=== PATIENT | female | born 1970 | race Caucasian/White ===

== ENCOUNTER 2016-09-24 19:00 | Emergency (ER) | payer MEDICARE, MEDICAID ==
[2016-09-24 19:30] VITALS: BP 112/84
[2016-09-24] MEDS ORDERED: diphenhydrAMINE 50 MG/ML SDV IVPUSH ONE (19:45)
[2016-09-24] MEDS ORDERED: Ondansetron 4 MG/2 ML SDV IV ONE (19:46)
[2016-09-24] MEDS ORDERED: Ketorolac 30 MG/ML SDV IVPUSH ONE (19:47)
[2016-09-24] MEDS ORDERED: HYDROmorphone 1 MG/ML Syringe IVPUSH ONE (21:02)
--- NOTE | 2016-09-24 21:37 | EDM.PDOC ---
ED HPI HEADACHE COMPLAINT - General Chief Complaint: Headache Stated Complaint: MIGRAINE/RETAINING FLUID Time Seen by Provider: 09/24/16 19:40 Source of Information: Reports: Patient History Limitations: Reports: No limitations - History of Present Illness INITIAL COMMENTS - FREE TEXT/NARRATIVE: C/o migraine pain since Thursday. Has Hx, Taken usual home medications without relief, nausea no vomiting. Notes slight increase than usual swelling and wonders if contributing to headache. Receiving Botox injections on regular basis. Location: Reports: occipital (right ), temporal, right Quality: Reports: pounding Severity: Reports: moderate, similar to past headaches Associated Symptoms: Reports: photophobia - Related Data Allergies/ADRs: Allergies Allergy/AdvReac Type Severity Reaction Status Date / Time Sulfa (Sulfonamide Allergy Intermediate Rash Verified 09/24/16 19:30 Antibiotics) metoclopramide HCl Allergy Swelling Verified 09/24/16 19:30 [From Reglan] quetiapine fumarate Allergy Disorientat Verified 09/24/16 19:30 [From Seroquel] ion Home Meds: Home Meds Budesonide/Formoterol [Symbicort 160-4.5 MCG] 2 puff INH BID 05/24/14 [History] Promethazine [Phenergan] 25 mg PO Q6HR PRN 06/30/14 [History] Carvedilol [Coreg] 6.25 mg PO BID 11/16/14 [History] Lisinopril 20 mg PO DAILY 01/29/15 [History] Potassium Chloride [Klor-Con M20] 40 meq PO DAILY 03/12/15 [History] Fexofenadine [Yolie] 180 mg PO DAILY PRN 03/13/15 [History] Gabapentin [Neurontin] 600 mg PO Q6H PRN 06/03/15 [History] Bumetanide 2 mg PO DAILY 09/12/15 [History] Calcium Carbonate/Vitamin D3 [Calcium 500-Vit D3 400 Tablet] 1 tab PO BID [History] Dexlansoprazole [Dexilant] 60 mg PO DAILY 09/12/15 [History] Methenamine Mandelate 1 gm PO BIDMEALS 09/12/15 [History] Polyethylene Glycol 3350 17 gm PO ASDIRECTED PRN 09/12/15 [History] Rizatriptan Benzoate [Maxalt] 5 mg PO ASDIRECTED PRN 09/12/15 [History] valACYclovir [Valtrex] 500 mg PO BID PRN 09/12/15 [History] Albuterol/Ipratropium [DuoNeb 3.0-0.5 MG/3 ML] 3 ml NEB Q6HRRT PRN 09/22/15 [ History] ClonazePAM [KlonoPIN] 0.5 mg PO ASDIRECTED 09/22/15 [History] Topiramate [Topamax] 100 mg PO BEDTIME 09/23/15 [History] busPIRone [Buspar] 10 mg PO TID 09/23/15 [History] Levalbuterol Tartrate [Xopenex HFA] 2 puff INH Q4H PRN 01/07/16 [History] Ondansetron [Zofran ODT] 4 mg SL Q8H PRN 03/24/16 [History] Escitalopram [Lexapro] 10 mg PO DAILY 06/12/16 [History] Past Medical History HEENT History: Reports: Impaired vision Other HEENT History: wears glasses Cardiovascular History: Reports: Arrhythmia, Blood clots/VTE/DVT, Cardiomyopathy , Heart Failure, Hypertension Respiratory History: Reports: Asthma, COPD, Pneumonia, recurrent Gastrointestinal History: Reports: GERD Genitourinary History: Reports: Renal calculus, UTI, recurrent 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: Endometrial ablation, 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, Musculoskeletal History: Reports: Back pain, chronic, Fracture Other Musculoskeletal History: Neck and back discomfort at present #4 on 0 to 10 scale is going to chiropractor; HX OF R WRIST FRACTURE Neurological History: Reports: Migraines Psychiatric History: Reports: Anxiety, PTSD Endocrine/Metabolic History: Reports: None Hematologic History: Reports: B12 deficiency, Bleeding disorder Other Hematologic History: vit D deficiency, 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 Immunologic History: Reports: None Oncologic (Cancer) History: Reports: None Dermatologic History: Reports: None - Infectious Disease History Infectious Disease History: Reports: None - Past Surgical History HEENT Surgical History: Reports: Naso-sinus surgery, Other (see below) Other HEENT Surgeries/Procedures: sinus 2004 Cardiovascular Surgical History: Reports: AICD Respiratory Surgical History: Reports: None GI Surgical History: Reports: Appendectomy, Cholecystectomy Female Surgical History: Reports: section, Endometrial ablation, Hysterectomy Endocrine Surgical History: Reports: None Neurological Surgical History: Reports: None Musculoskeletal Surgical History: Reports: Carpal tunnel, Other (see below) Other Musculoskeletal Surgeries/Procedures:: R wrist surgery Oncologic Surgical History: Reports: None Dermatological Surgical History: Reports: None Social & Family History - Family History Family Medical History: Unobtainable Cardiac: Reports: Blood clots/VTE/DVT, CAD, Other (see below) Other Cardiac Family History: FACTOR IV Respiratory: Reports: COPD Neurological: Reports: Alzheimers disease Endocrine/Metabolic: Reports: Diabetes, type II Hematologic: Reports: Anemia, B12 deficiency - Tobacco Use Smoking Status *Q: Current Every Day Smoker Years of Tobacco use: 30 Packs/Tins Daily: 10 Used Tobacco, but Quit: Yes Month Tobacco Last Used: 2014 Second Hand Smoke Exposure: No - Caffeine Use Caffeine Use: Reports: Coffee, Soda, Tea - Alcohol Use Days Per Week of Alcohol Use: 0 - Recreational Drug Use Recreational Drug Use: No Drug Use in Last 12 Months: Yes - Living Situation & Occupation Living situation: Reports: with significant other Occupation: employed ED ROS GENERAL - Review of Systems Review Of Systems: See Below Constitutional: Reports: no symptoms HEENT: Reports: Vision change (light sensitive) Respiratory: Reports: No Symptoms Cardiovascular: Reports: No symptoms GI/Abdominal: Reports: Nausea : Reports: no symptoms Musculoskeletal: Reports: no symptoms Skin: Reports: no symptoms Neurological: Reports: Headache Psychiatric: Reports: No symptoms - Physical Exam Exam: See Below Exam Limited By: No limitations General Appearance: alert, moderate distress Eye Exam: bilateral eye: EOMI, PERRL Ears: normal external exam Nose: normal inspection Throat/Mouth: Normal inspection Head Exam: atraumatic, normocephalic Neck: normal inspection, full range of motion Respiratory/Chest: no respiratory distress, lungs clear Cardiovascular: normal peripheral pulses, regular rate, rhythm GI/Abdominal: normal bowel sounds, soft Neuro Exam (Abbreviated): alert, oriented, normal cognition, normal gait, no motor/sensory deficits Extremities: normal inspection Psychiatric: normal affect Skin Exam: Warm, Dry, Intact, Normal color Course - Vital Signs Last Recorded V/S: Last Vital Signs Temp 97.7 F 09/24/16 21:55 Pulse 99 09/24/16 21:55 Resp 18 09/24/16 21:55 BP 112/84 09/24/16 21:55 Pulse Ox 96 05/03/17 21:55 - Orders/Labs/Meds Meds: Medications Discontinued Medications Generic Name Dose Route Start Last Admin Trade Name Myriam HERNANDEZ Reason Stop Dose Admin Diphenhydramine HCl 25 mg 09/24/16 19:45 09/24/16 20:10 Benadryl IVPUSH 09/24/16 19:46 25 mg ONETIME ONE Administration Hydromorphone HCl 1 mg 09/24/16 21:02 09/24/16 21:09 Dilaudid IVPUSH 09/24/16 21:03 1 mg ONETIME ONE Administration Ketorolac Tromethamine 30 mg 09/24/16 19:47 09/24/16 20:10 Toradol IVPUSH 09/24/16 19:48 30 mg ONETIME ONE Administration Ondansetron HCl 4 mg 09/24/16 19:46 09/24/16 20:10 Zofran IV 09/24/16 19:47 4 mg ONETIME ONE Administration Departure - Departure Time of Disposition: 21:35 Disposition: Home, Self-Care 01 Condition: good Clinical Impression: Migraine Forms: ED Department Discharge Additional Instructions: Home rest Resume home medications follow up with voice teacher or primary care in am regarding swelling
== END 2016-09-24 21:55 | disposition home or self-care (01) ==
LOC: DL.ED 19:00
DX: G43.909 Migraine, unspecified, not intractable, without status migrainosus (principal); I11.0 Hypertensive heart disease with heart failure; I50.9 Heart failure, unspecified; J45.909 Unspecified asthma, uncomplicated; J44.9 Chronic obstructive pulmonary disease, unspecified; Z87.01 Personal history of pneumonia (recurrent); F41.9 Anxiety disorder, unspecified; F17.210 Nicotine dependence, cigarettes, uncomplicated; Z90.49 Acquired absence of other specified parts of digestive tract; Z90.710 Acquired absence of both cervix and uterus; Z87.440 Personal history of urinary (tract) infections; Z79.899 Other long term (current) drug therapy; Z88.2 Allergy status to sulfonamides; Z88.8 Allergy status to other drugs, medicaments and biological substances
CPT/HCPCS: 96374; 96375; 99282; J1170; J1200; J1885; J2405; 99284

== ENCOUNTER 2016-09-27 15:21 | Emergency (ER) | payer MEDICARE, MEDICAID ==
[2016-09-27 15:50] VITALS: BP 87/74
[2016-09-27] MEDS ORDERED: Cyclobenzaprine 10 MG Tab PO ONE ×2 (16:40→17:37)
[2016-09-27] MEDS ORDERED: Codeine/Promethazine 10-6.25 MG/5 ML Syrup 5 ML UD Cup ONE (17:37)
[2016-09-27] MEDS ORDERED: Codeine/Promethazine 10-6.25 MG/5 ML Syrup 5 ML UD Cup PO ONE (17:37)
[2016-09-27] MEDS ORDERED: Cyclobenzaprine 10 MG Tab ONE (17:37)
[2016-09-27] MEDS ORDERED: Codeine/Promethazine 10-6.25 MG/5 ML Syrup 5 ML UD Cup PO SCH (18:00)
--- NOTE | 2016-09-29 16:16 | EDM.PDOC ---
Scribed by Georgia Maldonado 09/27/16 0020 for True Ruvalcaba MD ED HISTORY OF PRESENT ILLNESS - General Chief Complaint: Respiratory Problem Stated Complaint: HARD TIME BREATHING [id number] Time Seen by Provider: 09/27/16 16:30 Source of Information: Reports: Patient, RN, RN notes reviewed History Limitations: Reports: No limitations - History of Present Illness INITIAL COMMENTS - FREE TEXT/NARRATIVE: Patient presents with about 2 days duration of violent cough, which woke her up at night with accompanying right-sided and epigastric pain. This was described as sharp worse with movement and with stretching. She did try some over-the- counter cough medication which did not help. Due to her persistent coughing she came to the ER. Severity: severe Location, General: Reports: chest Improves with: Reports: None Associated Symptoms (General): Reports: no other symptoms - Related Data Allergies/ADRs: Allergies Allergy/AdvReac Type Severity Reaction Status Date / Time Sulfa (Sulfonamide Allergy Intermediate Rash Verified 09/24/16 19:30 Antibiotics) metoclopramide HCl Allergy Swelling Verified 09/24/16 19:30 [From Reglan] quetiapine fumarate Allergy Disorientat Verified 09/24/16 19:30 [From Seroquel] ion Home Meds: Home Meds Budesonide/Formoterol [Symbicort 160-4.5 MCG] 2 puff INH BID 05/24/14 [History] Promethazine [Phenergan] 25 mg PO Q6HR PRN 06/30/14 [History] Carvedilol [Coreg] 6.25 mg PO BID 11/16/14 [History] Lisinopril 20 mg PO DAILY 01/29/15 [History] Potassium Chloride [Klor-Con M20] 40 meq PO DAILY 03/12/15 [History] Fexofenadine [Yolie] 180 mg PO DAILY PRN 03/13/15 [History] Gabapentin [Neurontin] 600 mg PO Q6H PRN 06/03/15 [History] Bumetanide 2 mg PO DAILY 09/12/15 [History] Calcium Carbonate/Vitamin D3 [Calcium 500-Vit D3 400 Tablet] 1 tab PO BID [History] Dexlansoprazole [Dexilant] 60 mg PO DAILY 09/12/15 [History] Methenamine Mandelate 1 gm PO BIDMEALS 09/12/15 [History] Polyethylene Glycol 3350 17 gm PO ASDIRECTED PRN 09/12/15 [History] Rizatriptan Benzoate [Maxalt] 5 mg PO ASDIRECTED PRN 09/12/15 [History] valACYclovir [Valtrex] 500 mg PO BID PRN 09/12/15 [History] Albuterol/Ipratropium [DuoNeb 3.0-0.5 MG/3 ML] 3 ml NEB Q6HRRT PRN 09/22/15 [ History] ClonazePAM [KlonoPIN] 0.5 mg PO ASDIRECTED 09/22/15 [History] Topiramate [Topamax] 100 mg PO BEDTIME 09/23/15 [History] busPIRone [Buspar] 10 mg PO TID 09/23/15 [History] Levalbuterol Tartrate [Xopenex HFA] 2 puff INH Q4H PRN 01/07/16 [History] Ondansetron [Zofran ODT] 4 mg SL Q8H PRN 03/24/16 [History] Escitalopram [Lexapro] 10 mg PO DAILY 06/12/16 [History] Past Medical History HEENT History: Reports: Impaired vision Other HEENT History: wears glasses Cardiovascular History: Reports: Arrhythmia, Blood clots/VTE/DVT, Cardiomyopathy , Heart Failure, Hypertension Respiratory History: Reports: Asthma, COPD, Pneumonia, recurrent Gastrointestinal History: Reports: GERD Genitourinary History: Reports: Renal calculus, UTI, recurrent 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: Endometrial ablation, 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, Musculoskeletal History: Reports: Back pain, chronic, Fracture Other Musculoskeletal History: Neck and back discomfort at present #4 on 0 to 10 scale is going to chiropractor; HX OF R WRIST FRACTURE Neurological History: Reports: Migraines Psychiatric History: Reports: Anxiety, PTSD Endocrine/Metabolic History: Reports: None Hematologic History: Reports: B12 deficiency, Bleeding disorder Other Hematologic History: vit D deficiency, 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 Immunologic History: Reports: None Oncologic (Cancer) History: Reports: None Dermatologic History: Reports: None - Infectious Disease History Infectious Disease History: Reports: None - Past Surgical History HEENT Surgical History: Reports: Naso-sinus surgery, Other (see below) Other HEENT Surgeries/Procedures: sinus 2004 Cardiovascular Surgical History: Reports: AICD Respiratory Surgical History: Reports: None GI Surgical History: Reports: Appendectomy, Cholecystectomy Female Surgical History: Reports: section, Endometrial ablation, Hysterectomy Endocrine Surgical History: Reports: None Neurological Surgical History: Reports: None Musculoskeletal Surgical History: Reports: Carpal tunnel, Other (see below) Other Musculoskeletal Surgeries/Procedures:: R wrist surgery Oncologic Surgical History: Reports: None Dermatological Surgical History: Reports: None Social & Family History - Family History Family Medical History: Unobtainable Cardiac: Reports: Blood clots/VTE/DVT, CAD, Other (see below) Other Cardiac Family History: FACTOR IV Respiratory: Reports: COPD Neurological: Reports: Alzheimers disease Endocrine/Metabolic: Reports: Diabetes, type II Hematologic: Reports: Anemia, B12 deficiency - Tobacco Use Smoking Status *Q: Current Every Day Smoker Years of Tobacco use: 10 Packs/Tins Daily: 0.5 Used Tobacco, but Quit: Yes Month Tobacco Last Used: 2014 Second Hand Smoke Exposure: Yes - Caffeine Use Caffeine Use: Reports: Coffee, Soda, Tea - Alcohol Use Days Per Week of Alcohol Use: 0 - Recreational Drug Use Recreational Drug Use: No Drug Use in Last 12 Months: Yes - Living Situation & Occupation Living situation: Reports: with significant other Occupation: employed ED ROS GENERAL - Review of Systems Review Of Systems: ROS reveals no pertinent complaints other than HPI. ED EXAM, GENERAL - Physical Exam Exam: See Below Exam Limited By: No limitations General Appearance: alert, WD/WN, no apparent distress Eye Exam: bilateral eye: normal inspection Ears: normal external exam, normal canal, hearing grossly normal, normal TMs Nose: normal inspection, normal mucosa, no blood Throat/Mouth: Normal inspection, Normal lips, Normal teeth, Normal gums, Normal oropharynx, Normal voice, No airway compromise Head: atraumatic, normocephalic Neck: normal inspection, supple, non-tender, full range of motion Respiratory/Chest: no respiratory distress, lungs clear, normal breath sounds, no accessory muscle use, chest non-tender Cardiovascular: normal peripheral pulses, regular rate, rhythm, no edema, no gallop, no JVD, no murmur, no rub GI/Abdominal: other (tenderness on right upper quadrant costal area and epigastric area to palpation. No rebound or guarding. ) Back Exam: normal inspection, full range of motion, NT Extremities: normal inspection, normal range of motion, non-tender, normal capillary refill, no pedal edema Neurological: alert, oriented, CN II-XII intact, normal cognition, normal gait, normal reflexes, no motor/sensory deficits Psychiatric: normal affect, normal mood Skin Exam: Warm, Dry, Intact, Normal color, No rash Lymphatic: no adenopathy Course - Vital Signs Last Recorded V/S: Last Vital Signs Temp 37.7 C 09/27/16 15:48 Pulse 107 H 09/27/16 15:48 Resp 16 09/27/16 15:48 BP 87/74 L 09/27/16 15:48 Pulse Ox 93 L 09/27/16 15:48 - Orders/Labs/Meds Meds: Medications Discontinued Medications Generic Name Dose Route Start Last Admin Trade Name Thorq PRN Reason Stop Dose Admin Cyclobenzaprine HCl 10 mg 09/27/16 16:40 09/27/16 16:53 Flexeril PO 09/27/16 16:41 10 mg ONETIME ONE Administration Cyclobenzaprine HCl Confirm 09/27/16 17:37 09/27/16 17:44 Flexeril Administered 09/27/16 17:38 Not Given Dose 60 mg .ROUTE .STK-MED ONE Promethazine HCl/Codeine 5 ml 09/27/16 18:00 09/27/16 16:53 Phenergan With Codeine PO 5 ml Q4HR YUAN Administration Promethazine HCl/Codeine Confirm 09/27/16 17:37 09/27/16 17:44 Phenergan With Codeine Administered 09/27/16 17:38 Not Given Dose 20 ml .ROUTE .STK-MED ONE Departure - Departure Time of Disposition: 17:28 Disposition: Home, Self-Care 01 Condition: good Clinical Impression: Pleurodynia Instructions: Pleurodynia Forms: ED Department Discharge Additional Instructions: Flexeril 10mg. Phenergan with codeine. Follow up if persistent. I have read and agree with the documentation that has been completed regarding this visit. By signing this record, I attest that the documentation was completed in my physical presence and is an accurate record of the encounter.
== END 2016-09-27 17:45 | disposition home or self-care (01) ==
LOC: DL.ED 15:21
DX: R07.81 Pleurodynia (principal); I11.0 Hypertensive heart disease with heart failure; I50.9 Heart failure, unspecified; J45.909 Unspecified asthma, uncomplicated; J44.9 Chronic obstructive pulmonary disease, unspecified; K21.9 Gastro-esophageal reflux disease without esophagitis; F41.9 Anxiety disorder, unspecified; F17.210 Nicotine dependence, cigarettes, uncomplicated; Z87.01 Personal history of pneumonia (recurrent); Z87.440 Personal history of urinary (tract) infections; Z79.899 Other long term (current) drug therapy; Z90.49 Acquired absence of other specified parts of digestive tract; Z90.710 Acquired absence of both cervix and uterus; Z88.2 Allergy status to sulfonamides; Z88.8 Allergy status to other drugs, medicaments and biological substances
CPT/HCPCS: 99283; A9270

== ENCOUNTER 2016-12-04 14:59 | Emergency (ER) | payer MEDICARE, MEDICAID ==
[2016-12-04 15:26] VITALS: BP 124/74
[2016-12-04] MEDS ORDERED: Ketorolac 30 MG/ML SDV IVPUSH ONE (17:17)
[2016-12-04] MEDS ORDERED: diphenhydrAMINE 50 MG/ML SDV IVPUSH ONE (17:17)
[2016-12-04] MEDS ORDERED: Dexamethasone 4 MG/ML SDV IVPUSH ONE (17:17)
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
[2016-12-04] MEDS ORDERED: Ondansetron 4 MG/2 ML SDV IV ONE (17:21)
[2016-12-04] MEDS ORDERED: HYDROmorphone 1 MG/ML Syringe IVPUSH ONE (17:48)
== END 2016-12-04 18:15 | disposition home or self-care (01) ==
LOC: DL.ED 14:59
DX: G43.909 Migraine, unspecified, not intractable, without status migrainosus (principal); I11.0 Hypertensive heart disease with heart failure; I50.9 Heart failure, unspecified; F17.210 Nicotine dependence, cigarettes, uncomplicated; F41.9 Anxiety disorder, unspecified; J45.909 Unspecified asthma, uncomplicated; K21.9 Gastro-esophageal reflux disease without esophagitis; I42.9 Cardiomyopathy, unspecified; J44.9 Chronic obstructive pulmonary disease, unspecified; Z90.49 Acquired absence of other specified parts of digestive tract; Z98.890 Other specified postprocedural states; Z90.710 Acquired absence of both cervix and uterus; Z79.899 Other long term (current) drug therapy; Z88.2 Allergy status to sulfonamides; Z88.8 Allergy status to other drugs, medicaments and biological substances; Z87.440 Personal history of urinary (tract) infections; Z87.442 Personal history of urinary calculi
CPT/HCPCS: 96374; 96375; 99283; J1100; J1170; J1200; J1885; J2405

== ENCOUNTER 2017-03-05 13:34 | Emergency (ER) | payer MEDICARE, MEDICAID ==
--- NOTE | 2017-03-05 13:48 | EDM.PDOC ---
ED HPI GENERAL MEDICAL PROBLEM - General Chief Complaint: Respiratory Problem Stated Complaint: TROUBLE BREATHING Time Seen by Provider: 03/05/17 13:48 Source of Information: Reports: Patient, RN, RN Notes Reviewed History Limitations: Reports: No Limitations - History of Present Illness INITIAL COMMENTS - FREE TEXT/NARRATIVE: Pt states she was discharged from [facility] yesterday after being hopitalized for pneumonia. She states she hasn't been feeling well since then. She states she has had a feeling of swelling in her throat and tongue, sore tongue, and pressure and fullness in her chest. She states she was running a temp of 100 at home, took ibuprofen at home. Onset: Gradual Location: Reports: Neck, Chest Quality: Reports: Ache, Dull Severity: Moderate Worsens with: Reports: None Associated Symptoms: Reports: Cough, Fever/Chills, Shortness of Breath, Other ( dizziness) - Related Data Allergies Allergy/AdvReac Type Severity Reaction Status Date / Time Sulfa (Sulfonamide Allergy Intermediate Rash Verified 09/24/16 19:30 Antibiotics) metoclopramide HCl Allergy Swelling Verified 09/24/16 19:30 [From Reglan] quetiapine fumarate Allergy Disorientat Verified 09/24/16 19:30 [From Seroquel] ion Home Meds: Home Meds Budesonide/Formoterol [Symbicort 160-4.5 MCG] 2 puff INH BID 05/24/14 [History] Promethazine [Phenergan] 25 mg PO Q6HR PRN 06/30/14 [History] Carvedilol [Coreg] 6.25 mg PO BID 11/16/14 [History] Lisinopril 20 mg PO DAILY 01/29/15 [History] Potassium Chloride [Klor-Con M20] 40 meq PO BID 03/12/15 [History] Fexofenadine [Yolie] 180 mg PO DAILY PRN 03/13/15 [History] Gabapentin [Neurontin] 600 mg PO Q6H PRN 06/03/15 [History] Bumetanide 2 mg PO DAILY 09/12/15 [History] Calcium Carbonate/Vitamin D3 [Calcium 500-Vit D3 400 Tablet] 1 tab PO BID [History] Dexlansoprazole [Dexilant] 60 mg PO DAILY 09/12/15 [History] Methenamine Mandelate 1 gm PO BIDMEALS 09/12/15 [History] Polyethylene Glycol 3350 17 gm PO ASDIRECTED PRN 09/12/15 [History] Rizatriptan Benzoate [Maxalt] 5 mg PO ASDIRECTED PRN 09/12/15 [History] valACYclovir [Valtrex] 500 mg PO BID PRN 09/12/15 [History] Albuterol/Ipratropium [DuoNeb 3.0-0.5 MG/3 ML] 3 ml NEB Q6HRRT PRN 09/22/15 [ History] ClonazePAM [KlonoPIN] 0.5 mg PO TID 09/22/15 [History] Topiramate [Topamax] 100 mg PO BEDTIME 09/23/15 [History] busPIRone [Buspar] 10 mg PO TID 09/23/15 [History] Levalbuterol Tartrate [Xopenex HFA] 2 puff INH Q4H PRN 01/07/16 [History] Ondansetron [Zofran ODT] 4 mg SL Q8H PRN 03/24/16 [History] Escitalopram [Lexapro] 10 mg PO DAILY 06/12/16 [History] Levofloxacin [Levofloxacin] 1 tab PO DAILY 03/05/17 [History] clonazePAM [Klonopin] 1 tab PO BEDTIME 03/05/17 [History] Past Medical History HEENT History: Reports: Impaired Vision Other HEENT History: wears glasses Cardiovascular History: Reports: Arrhythmia, Blood Clots/VTE/DVT, Cardiomyopathy , Heart Failure, Hypertension Respiratory History: Reports: Asthma, COPD, Pneumonia, Recurrent Gastrointestinal History: Reports: GERD Genitourinary History: Reports: Renal Calculus, UTI, Recurrent [employer] History: Reports: Endometrial Ablation, 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, Musculoskeletal History: Reports: Back Pain, Chronic, Fracture Other Musculoskeletal History: Neck and back discomfort at present #4 on 0 to 10 scale is going to chiropractor; HX OF R WRIST FRACTURE Neurological History: Reports: Migraines Psychiatric History: Reports: Addiction, Anxiety, PTSD Endocrine/Metabolic History: Reports: None Hematologic History: Reports: B12 Deficiency, Bleeding Disorder Other Hematologic History: vit D deficiency, 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 Immunologic History: Reports: None Oncologic (Cancer) History: Reports: None Dermatologic History: Reports: None - Infectious Disease History Infectious Disease History: Reports: None - Past Surgical History HEENT Surgical History: Reports: Naso-Sinus Surgery, Other (See Below) GI Surgical History: Reports: Appendectomy, Cholecystectomy Female Surgical History: Reports: Section, Endometrial Ablation, Hysterectomy Endocrine Surgical History: Reports: None Neurological Surgical History: Reports: None Musculoskeletal Surgical History: Reports: Carpal Tunnel Oncologic Surgical History: Reports: None Dermatological Surgical History: Reports: None Social & Family History - Family History Family Medical History: Unobtainable Cardiac: Reports: Blood Clots/VTE/DVT, CAD, Other (See Below) Other Cardiac Family History: FACTOR IV Respiratory: Reports: COPD Neurological: Reports: Alzheimers Disease Endocrine/Metabolic: Reports: Diabetes, type II Hematologic: Reports: Anemia, B12 Deficiency - Tobacco Use Smoking Status *Q: Current Every Day Smoker Years of Tobacco use: 30 Packs/Tins Daily: 1 Used Tobacco, but Quit: Yes Month Tobacco Last Used: 2014 Second Hand Smoke Exposure: Yes - Caffeine Use Caffeine Use: Reports: Coffee - Alcohol Use Days Per Week of Alcohol Use: 0 - Recreational Drug Use Recreational Drug Use: No Drug Use in Last 12 Months: Yes - Living Situation & Occupation Living situation: Reports: with Significant Other Occupation: Employed ED ROS GENERAL - Review of Systems Review Of Systems: ROS reveals no pertinent complaints other than HPI. ED EXAM, GENERAL - Physical Exam Exam: See Below Exam Limited By: No Limitations General Appearance: Alert, WD/WN, No Apparent Distress Eye Exam: Bilateral Eye: Normal Inspection, PERRL Ears: Normal External Exam, Hearing Grossly Normal Nose: Normal Inspection Throat/Mouth: Normal Inspection, Normal Voice, No Airway Compromise. No: Normal Oropharynx (erythematous) Head: Atraumatic, Normocephalic Neck: Normal Inspection, Supple, Non-Tender, Full Range of Motion Respiratory/Chest: No Respiratory Distress, Wheezing (exp) Cardiovascular: Normal Peripheral Pulses, Regular Rate, Rhythm, No Edema, No Gallop, No JVD, No Murmur, No Rub Peripheral Pulses: 2+: Radial (L), Radial (R) GI/Abdominal: Normal Bowel Sounds, Soft, Non-Tender (Female) Exam: Deferred Rectal (Female) Exam: Deferred Back Exam: Normal Inspection, Full Range of Motion Extremities: Normal Inspection, Normal Range of Motion, Non-Tender, No Pedal Edema, Normal Capillary Refill Neurological: Alert, Oriented, Normal Cognition, Normal Gait, No Motor/Sensory Deficits Psychiatric: Anxious, Tearful Skin Exam: Warm, Dry, Intact, Normal Color, No Rash Lymphatic: No Adenopathy EKG INTERPRETATION EKG Date: 03/05/17 Time: 14:05 Rhythm: Other (ventricular paced) Rate (Beats/Min): 99 Comparison: No Change Course - Vital Signs Last Recorded V/S: Last Vital Signs Temp 97.3 F 03/05/17 13:35 Pulse 94 03/05/17 15:33 Resp 20 03/05/17 15:33 BP 105/65 03/05/17 15:33 Pulse Ox 94 L 03/05/17 15:33 - Orders/Labs/Meds Orders: Active Orders 24 hr Category Date Time Status EKG Documentation Completion [RC] STAT Care 03/05/17 13:54 Active Peripheral IV Care [RC] . DIRECTED Care 03/05/17 13:55 Active RT Aerosol Therapy [RC] ASDIRECTED Care 03/05/17 14:20 Active CULTURE BLOOD [BC] Stat Lab 03/05/17 14:49 Received CULTURE BLOOD [BC] Stat Lab 03/05/17 14:55 Received CULTURE STREP A CONFIRMATION [] Stat Lab 03/05/17 13:52 Results STREP SCRN A RAPID W CULT CONF [RM] Stat Lab 03/05/17 13:52 Results UA W/MICROSCOPIC [URIN] Stat Lab 03/05/17 15:25 Received Sodium Chloride 0.9% [Saline Flush] Med 03/05/17 13:54 Active 10 ml FLUSH ASDIRECTED PRN Blood Culture x2 Reflex Set [OM.PC] Stat Oth 03/05/17 14:34 Ordered Peripheral IV Insertion Adult [OM.PC] Stat Oth 03/05/17 13:54 Ordered Medication Orders Sodium Chloride (Saline Flush) 10 ml FLUSH ASDIRECTED PRN PRN Reason: Keep Vein Open Last Admin: 03/05/17 14:18 Dose: 10 ml Labs: Laboratory Tests 03/05/17 03/05/17 03/05/17 Range/Units 14:16 14:16 14:49 WBC 19.5 H (5.0-10.0) 10^3/uL RBC 3.93 L (4.2-5.4) 10^6/uL Hgb 11.9 L (12.0-16.0) g/dL Hct 35.6 L (37.0-47.0) % MCV 90.6 (80-100) fL MCH 30.3 (27.0-34.0) pg MCHC 33.4 (33.0-35.0) g/dL Plt Count 209 (150-450) 10^3/uL Neut % (Auto) 84.3 H (42.2-75.2) % Lymph % (Auto) 10.0 L (20.5-50.1) % Pine % (Auto) 5.2 (2-8) % Eos % (Auto) 0.2 L (1.0-3.0) % Baso % (Auto) 0.3 (0.0-1.0) % Add Manual Diff Yes Neutrophils % (Manual) 79 H (42-75) % Band Neutrophils % 5 % Lymphocytes % (Manual) 11 L (20-50) % Monocytes % (Manual) 5 (2-8) % Sodium 137 (135-145) mmol/L Potassium 3.4 L (3.6-5.0) mmol/L Chloride 97 L (101-111) mmol/L Carbon Dioxide 25.0 (21.0-31.0) mmol/L Anion Gap 18.4 BUN 22 H (7-18) mg/dL Creatinine 1.0 (0.6-1.3) mg/dL Est Cr Clr Drug Dosing 58.79 mL/min Estimated GFR (MDRD) 59 BUN/Creatinine Ratio 22.00 Glucose 181 H (74-105) mg/dL Lactic Acid 2.0 (0.5-2.2) mmol/L Calcium 8.5 (8.4-10.2) mg/dl Total Bilirubin 0.6 (0.2-1.0) mg/dL AST 36 (10-42) IU/L ALT 26 (10-60) IU/L Alkaline Phosphatase 62 (42-121) IU/L Troponin I < 0.02 (0.00-0.02) ng/ml B-Natriuretic Peptide 12 (0-100) pg/ml Total Protein 6.4 L (6.7-8.2) g/dl Albumin 3.5 (3.2-5.5) g/dl Globulin 2.9 Albumin/Globulin Ratio 1.21 Meds: Medications Generic Name Dose Route Start Last Admin Trade Name Freq PRN Reason Stop Dose Admin Sodium Chloride 10 ml 03/05/17 13:54 03/05/17 14:18 Saline Flush FLUSH 10 ml ASDIRECTED PRN Administration Keep Vein Open Discontinued Medications Generic Name Dose Route Start Last Admin Trade Name Thorq PRN Reason Stop Dose Admin Albuterol/Ipratropium 3 ml 03/05/17 14:20 03/05/17 14:25 Duoneb 3.0-0.5 Mg/3 Ml NEB 03/05/17 14:21 3 ml ONETIME ONE Administration Lorazepam 1 mg 03/05/17 14:57 03/05/17 15:10 Ativan IVPUSH 03/05/17 14:58 1 mg ONETIME ONE Administration - Radiology Interpretation Free Text/Narrative:: Chest xray: No acute findings See rad report Departure - Departure Time of Disposition: 15:36 Disposition: Home, Self-Care 01 Condition: Fair Clinical Impression: Non-cardiac chest pain - Discharge Information Instructions: Nonspecific Chest Pain Forms: ED Department Discharge Additional Instructions: Follow up with Dr. Worthy at your next scheduled appointment. "Magic Mouthwash" 5mL orally, swish and spit every 4-6 hours as needed for mouth pain. - My Orders Last 24 Hours: My Active Orders 03/05/17 13:52 CULTURE STREP A CONFIRMATION [RM] Stat STREP SCRN A RAPID W CULT CONF [RM] Stat 03/05/17 13:54 EKG Documentation Completion [RC] STAT Sodium Chloride 0.9% [Saline Flush] 10 ml FLUSH ASDIRECTED PRN Peripheral IV Insertion Adult [OM.PC] Stat 03/05/17 13:55 Peripheral IV Care [RC] . DIRECTED 03/05/17 14:20 RT Aerosol Therapy [RC] ASDIRECTED 03/05/17 14:34 Blood Culture x2 Reflex Set [OM.PC] Stat 03/05/17 14:49 CULTURE BLOOD [BC] Stat 03/05/17 14:55 CULTURE BLOOD [BC] Stat - Assessment/Plan Last 24 Hours: My Active Orders 03/05/17 13:52 CULTURE STREP A CONFIRMATION [RM] Stat STREP SCRN A RAPID W CULT CONF [RM] Stat 03/05/17 13:54 EKG Documentation Completion [RC] STAT Sodium Chloride 0.9% [Saline Flush] 10 ml FLUSH ASDIRECTED PRN Peripheral IV Insertion Adult [OM.PC] Stat 03/05/17 13:55 Peripheral IV Care [RC] . DIRECTED 03/05/17 14:20 RT Aerosol Therapy [RC] ASDIRECTED 03/05/17 14:34 Blood Culture x2 Reflex Set [OM.PC] Stat 03/05/17 14:49 CULTURE BLOOD [BC] Stat 03/05/17 14:55 CULTURE BLOOD [BC] Stat
[2017-03-05] MEDS ORDERED: Sodium Chloride 0.9% 10 ML Syringe FLUSH PRN (13:54)
[2017-03-05] MEDS ORDERED: Albuterol/Ipratropium 3.0-0.5 MG/3 ML Neb Soln NEB ONE (14:20)
--- NOTE | 2017-03-05 14:38 | CR ---
Clinical history: 46-year-old female with chest pain and shortness of breath (history CHF). Interpretation: Generalized slight relative increase venous congestion (when compared directly to dick m of 07 January 2016) but normal cardiac size and no dependent new pleural fluid accumulation. BNP? EKG? Cardiac pacemaker leads intact and unchanged. No new lung mass, hilar lymphadenopathy or focal lobar pneumonia. No atelectasis/collapse. CONCLUSION: Subtle relative increased bronchovascular markings (above). Otherwise negative exam.
[2017-03-05 14:52] LABS: CHLORIDE,CL 97 mmol/L (101-111); SODIUM,NA 137 mmol/L (135-145)
[2017-03-05] MEDS ORDERED: LORazepam 2 MG/ML Syringe IVPUSH ONE (14:57)
[2017-03-05 15:34] VITALS: BP 105/65
--- NOTE | 2017-03-09 07:39 | EKG ---
03/05/2017- MARTINEZ DICK - EKG done on a 46-year-old female, showing ventricular paced rhythm with a heart rate of 99 beats per minute. No further analysis. [facility] /[id number]
== END 2017-03-05 16:07 | disposition home or self-care (01) ==
LOC: DL.ED 13:34
DX: R07.89 Other chest pain (principal); I50.9 Heart failure, unspecified; J44.9 Chronic obstructive pulmonary disease, unspecified; G43.909 Migraine, unspecified, not intractable, without status migrainosus; F41.9 Anxiety disorder, unspecified; F17.210 Nicotine dependence, cigarettes, uncomplicated; Z87.01 Personal history of pneumonia (recurrent); Z88.2 Allergy status to sulfonamides
CPT/HCPCS: 36415; 71020; 80053; 81001; 83605; 83880; 84484; 85025; 87040; 87081; 87430; 93005; 93010; 96374; 99285; J2060; J7050; 99284

== ENCOUNTER 2017-12-09 10:11 | Emergency (ER) | payer MEDICARE, MEDICAID ==
[2017-12-09 10:37] VITALS: BP 106/69
[2017-12-09] MEDS ORDERED: Sodium Chloride 0.9% 1,000 ML IV ONE (10:41)
[2017-12-09] MEDS ORDERED: Ondansetron 4 MG/2 ML SDV IV ONE (10:41)
[2017-12-09 11:21] LABS: ANION GAP 10.8; CHLORIDE,CL 99 mmol/L (101-111); SODIUM,NA 137 mmol/L (135-145)
[2017-12-09] MEDS ORDERED: Promethazine 25 MG/ML SDV IM ONE (11:25)
[2017-12-09] MEDS ORDERED: Ketorolac 30 MG/ML SDV IVPUSH ONE (11:28)
--- NOTE | 2017-12-09 11:44 | EDM.PDOC ---
ED HPI GENERAL MEDICAL PROBLEM - General Chief Complaint: Headache Stated Complaint: [id number] MIGRAINE Time Seen by Provider: 12/09/17 11:00 Source of Information: Reports: Patient History Limitations: Reports: No Limitations - History of Present Illness INITIAL COMMENTS - FREE TEXT/NARRATIVE: This 47 yo female patient reports to the ED with a 3 day history of a migraine headache. The patient reports that she has attempted to take her home medications, but has been unable to keep her medications down due to nausea/ vomiting. The patient reports that she did stop doing Botox injections, but will restart the injections in April (1st available appointment). The patient states that she has had numerous similar episodes in the past that only got better after several medications given. Onset Date: 12/07/17 Duration: Constant, Getting Worse Location: Reports: Head Quality: Reports: Ache, Sharp, Stabbing Severity: Moderate Improves with: Reports: None Worsens with: Reports: None Associated Symptoms: Reports: No Other Symptoms Right Head Pain Score (Numeric/FACES): 9 - Related Data Allergies Allergy/AdvReac Type Severity Reaction Status Date / Time Sulfa (Sulfonamide Allergy Intermediate Rash Verified 09/24/16 19:30 Antibiotics) metoclopramide HCl Allergy Swelling Verified 09/24/16 19:30 [From Reglan] quetiapine fumarate Allergy Disorientat Verified 09/24/16 19:30 [From Seroquel] ion Home Meds: Home Meds Budesonide/Formoterol [Symbicort 160-4.5 MCG] 2 puff INH BID 05/24/14 [History] Promethazine [Phenergan] 25 mg PO Q6HR PRN 06/30/14 [History] Carvedilol [Coreg] 6.25 mg PO BID 11/16/14 [History] Lisinopril 20 mg PO DAILY 01/29/15 [History] Potassium Chloride [Klor-Con M20] 40 meq PO BID 03/12/15 [History] Fexofenadine [Yolie] 180 mg PO DAILY PRN 03/13/15 [History] Gabapentin [Neurontin] 600 mg PO Q6H PRN 06/03/15 [History] Bumetanide 2 mg PO DAILY 09/12/15 [History] Calcium Carbonate/Vitamin D3 [Calcium 500-Vit D3 400 Tablet] 1 tab PO BID [History] Dexlansoprazole [Dexilant] 60 mg PO DAILY 09/12/15 [History] Methenamine Mandelate 1 gm PO BIDMEALS 09/12/15 [History] Polyethylene Glycol 3350 17 gm PO ASDIRECTED PRN 09/12/15 [History] Rizatriptan Benzoate [Maxalt] 5 mg PO ASDIRECTED PRN 09/12/15 [History] valACYclovir [Valtrex] 500 mg PO BID PRN 09/12/15 [History] Albuterol/Ipratropium [DuoNeb 3.0-0.5 MG/3 ML] 3 ml NEB Q6HRRT PRN 09/22/15 [ History] ClonazePAM [KlonoPIN] 0.5 mg PO QID 09/22/15 [History] Topiramate [Topamax] 100 mg PO BEDTIME 09/23/15 [History] busPIRone [Buspar] 10 mg PO TID 09/23/15 [History] Ondansetron [Zofran ODT] 4 mg SL Q8H PRN 03/24/16 [History] Escitalopram [Lexapro] 10 mg PO DAILY 06/12/16 [History] Past Medical History HEENT History: Reports: Impaired Vision Other HEENT History: wears glasses Cardiovascular History: Reports: Arrhythmia, Blood Clots/VTE/DVT, Cardiomyopathy , Heart Failure, Hypertension Other Cardiovascular History: AICD Respiratory History: Reports: Asthma, COPD, Pneumonia, Recurrent Gastrointestinal History: Reports: GERD Genitourinary History: Reports: Renal Calculus, UTI, Recurrent 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, 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, Musculoskeletal History: Reports: Back Pain, Chronic, Fracture Other Musculoskeletal History: Neck and back discomfort at present #4 on 0 to 10 scale is going to chiropractor; HX OF R WRIST FRACTURE Neurological History: Reports: Migraines Psychiatric History: Reports: Addiction, Anxiety, PTSD Endocrine/Metabolic History: Reports: None Hematologic History: Reports: B12 Deficiency, Bleeding Disorder Other Hematologic History: vit D deficiency, 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 Immunologic History: Reports: None Oncologic (Cancer) History: Reports: None Dermatologic History: Reports: None - Infectious Disease History Infectious Disease History: Reports: None - Past Surgical History HEENT Surgical History: Reports: Naso-Sinus Surgery, Other (See Below) GI Surgical History: Reports: Appendectomy, Cholecystectomy Female Surgical History: Reports: Section, Endometrial Ablation, Hysterectomy Endocrine Surgical History: Reports: None Neurological Surgical History: Reports: None Musculoskeletal Surgical History: Reports: Carpal Tunnel Oncologic Surgical History: Reports: None Dermatological Surgical History: Reports: None Social & Family History - Family History Family Medical History: Unobtainable Cardiac: Reports: Blood Clots/VTE/DVT, CAD, Other (See Below) Other Cardiac Family History: FACTOR IV Respiratory: Reports: COPD Neurological: Reports: Alzheimers Disease Endocrine/Metabolic: Reports: Diabetes, type II Hematologic: Reports: Anemia, B12 Deficiency - Tobacco Use Smoking Status *Q: Current Every Day Smoker Years of Tobacco use: 33 Packs/Tins Daily: 1 - Caffeine Use Caffeine Use: Reports: Coffee - Recreational Drug Use Recreational Drug Use: No - Living Situation & Occupation Living situation: Reports: with Significant Other Occupation: Employed ED ROS GENERAL - Review of Systems Review Of Systems: ROS reveals no pertinent complaints other than HPI. - Physical Exam Exam: See Below Exam Limited By: No Limitations General Appearance: Alert, WD/WN, Moderate Distress Eye Exam: Bilateral Eye: EOMI, Normal Inspection, PERRL Ears: Normal External Exam, Normal Canal, Hearing Grossly Normal, Normal TMs Nose: Normal Inspection, Normal Mucosa, No Blood Throat/Mouth: Normal Inspection, Normal Lips, Normal Teeth, Normal Gums, Normal Oropharynx, Normal Voice, No Airway Compromise Head Exam: Atraumatic, Normocephalic Neck: Normal Inspection, Supple, Non-Tender, Full Range of Motion Respiratory/Chest: No Respiratory Distress, Lungs Clear, Normal Breath Sounds, No Accessory Muscle Use, Chest Non-Tender Cardiovascular: Normal Peripheral Pulses, Regular Rate, Rhythm, No Edema, No Gallop, No JVD, No Murmur, No Rub GI/Abdominal: Normal Bowel Sounds, Soft, Non-Tender, No Organomegaly, No Distention, No Abnormal Bruit, No Mass (Female) Exam: Deferred Rectal (Female) Exam: Deferred Neuro Exam (Abbreviated): Alert, Oriented, CN II-XII Intact, Normal Cognition, Normal Gait, Normal Reflexes, No Motor/Sensory Deficits Back Exam: Normal Inspection, Full Range of Motion, NT Extremities: Normal Inspection, Normal Range of Motion, Non-Tender, No Pedal Edema, Normal Capillary Refill Psychiatric: Normal Affect, Normal Mood Skin Exam: Warm, Dry, Intact, Normal Color, No Rash Course - Vital Signs Last Recorded V/S: Last Vital Signs Temp 36.6 C 12/09/17 10:24 Pulse 86 12/09/17 10:24 Resp 16 12/09/17 10:24 BP 106/69 12/09/17 10:24 Pulse Ox 95 12/09/17 10:24 - Orders/Labs/Meds Orders: Active Orders 24 hr Category Date Time Status DRUG SCREEN URINE BIORAD [URCHEM] Stat Lab 12/09/17 10:40 Ordered HCG QUALITATIVE,URINE [URCHEM] Stat Lab 12/09/17 10:40 Ordered UA W/MICROSCOPIC [URIN] Stat Lab 12/09/17 10:40 Ordered Labs: Laboratory Tests 12/09/17 12/09/17 12/09/17 Range/Units 10:40 10:40 10:40 WBC (5.0-10.0) 10^3/uL RBC (4.2-5.4) 10^6/uL Hgb (12.0-16.0) g/dL Hct (37.0-47.0) % MCV (80-100) fL MCH (27.0-34.0) pg MCHC (33.0-35.0) g/dL Plt Count (150-450) 10^3/uL Neut % (Auto) (42.2-75.2) % Lymph % (Auto) (20.5-50.1) % Pitt % (Auto) (2-8) % Eos % (Auto) (1.0-3.0) % Baso % (Auto) (0.0-1.0) % Sodium (135-145) mmol/L Potassium (3.6-5.0) mmol/L Chloride (101-111) mmol/L Carbon Dioxide (21.0-31.0) mmol/L Anion Gap BUN (7-18) mg/dL Creatinine (0.6-1.3) mg/dL Est Cr Clr Drug Dosing mL/min Estimated GFR (MDRD) BUN/Creatinine Ratio Glucose (74-105) mg/dL Calcium (8.4-10.2) mg/dl Total Bilirubin (0.2-1.0) mg/dL AST (10-42) IU/L ALT (10-60) IU/L Alkaline Phosphatase (42-121) IU/L Total Protein (6.7-8.2) g/dl Albumin (3.2-5.5) g/dl Globulin Albumin/Globulin Ratio Urine Color Yellow (YELLOW) Urine Appearance Clear (CLEAR) Urine pH 7.0 (5.0-9.0) Ur Specific Hudson 1.010 (1.005-1.030) Urine Protein Negative (NEGATIVE) Urine Glucose (UA) Negative (NEGATIVE) Urine Ketones Negative (NEGATIVE) Urine Occult Blood Negative (NEGATIVE) Urine Nitrite Negative (NEGATIVE) Urine Bilirubin Negative (NEGATIVE) Urine Urobilinogen 0.2 (0.2-1.0) mg/dL Ur Leukocyte Esterase Negative (NEGATIVE) Urine RBC 0-5 /HPF Urine WBC 0-5 (0-5/HPF) /HPF Ur Epithelial Cells Not seen /HPF Urine Bacteria Rare (0-FEW/HPF) /HPF Urine HCG, Qual Negative Urine Opiates Screen Negative (NEGATIVE) Ur Oxycodone Screen Negative (NEGATIVE) Urine Methadone Screen Negative (NEGATIVE) Ur Barbiturates Screen Negative (NEGATIVE) U Tricyclic Antidepress Negative (NEGATIVE) Ur Phencyclidine Scrn Negative (NEGATIVE) Ur Amphetamine Screen Negative (NEGATIVE) U Methamphetamines Scrn Negative (NEGATIVE) Urine MDMA Screen Negative (NEGATIVE) U Benzodiazepines Scrn Negative (NEGATIVE) Urine Cocaine Screen Negative (NEGATIVE) U Marijuana (THC) Screen Negative (NEGATIVE) 12/09/17 12/09/17 Range/Units 10:47 10:47 WBC 13.6 H (5.0-10.0) 10^3/uL RBC 4.69 (4.2-5.4) 10^6/uL Hgb 13.6 D (12.0-16.0) g/dL Hct 40.8 (37.0-47.0) % MCV 87.0 D (80-100) fL MCH 29.0 (27.0-34.0) pg MCHC 33.3 (33.0-35.0) g/dL Plt Count 246 (150-450) 10^3/uL Neut % (Auto) 61.7 (42.2-75.2) % Lymph % (Auto) 29.4 (20.5-50.1) % Pitt % (Auto) 7.3 (2-8) % Eos % (Auto) 1.2 (1.0-3.0) % Baso % (Auto) 0.4 (0.0-1.0) % Sodium 137 (135-145) mmol/L Potassium 3.8 (3.6-5.0) mmol/L Chloride 99 L (101-111) mmol/L Carbon Dioxide 31.0 (21.0-31.0) mmol/L Anion Gap 10.8 BUN 16 (7-18) mg/dL Creatinine 0.9 (0.6-1.3) mg/dL Est Cr Clr Drug Dosing 66.01 mL/min Estimated GFR (MDRD) > 60 BUN/Creatinine Ratio 17.77 Glucose 110 H (74-105) mg/dL Calcium 9.6 (8.4-10.2) mg/dl Total Bilirubin 0.4 (0.2-1.0) mg/dL AST 21 (10-42) IU/L ALT 18 (10-60) IU/L Alkaline Phosphatase 87 (42-121) IU/L Total Protein 7.4 (6.7-8.2) g/dl Albumin 4.1 (3.2-5.5) g/dl Globulin 3.3 Albumin/Globulin Ratio 1.24 Urine Color (YELLOW) Urine Appearance (CLEAR) Urine pH (5.0-9.0) Ur Specific Hudson (1.005-1.030) Urine Protein (NEGATIVE) Urine Glucose (UA) (NEGATIVE) Urine Ketones (NEGATIVE) Urine Occult Blood (NEGATIVE) Urine Nitrite (NEGATIVE) Urine Bilirubin (NEGATIVE) Urine Urobilinogen (0.2-1.0) mg/dL Ur Leukocyte Esterase (NEGATIVE) Urine RBC /HPF Urine WBC (0-5/HPF) /HPF Ur Epithelial Cells /HPF Urine Bacteria (0-FEW/HPF) /HPF Urine HCG, Qual Urine Opiates Screen (NEGATIVE) Ur Oxycodone Screen (NEGATIVE) Urine Methadone Screen (NEGATIVE) Ur Barbiturates Screen (NEGATIVE) U Tricyclic Antidepress (NEGATIVE) Ur Phencyclidine Scrn (NEGATIVE) Ur Amphetamine Screen (NEGATIVE) U Methamphetamines Scrn (NEGATIVE) Urine MDMA Screen (NEGATIVE) U Benzodiazepines Scrn (NEGATIVE) Urine Cocaine Screen (NEGATIVE) U Marijuana (THC) Screen (NEGATIVE) Meds: Medications Discontinued Medications Generic Name Dose Route Start Last Admin Trade Name Freq PRN Reason Stop Dose Admin Hydromorphone HCl 1 mg 12/09/17 12:04 12/09/17 12:10 Dilaudid IVPUSH 12/09/17 12:05 1 mg ONETIME ONE Administration Sodium Chloride 1,000 mls @ 999 mls/hr 12/09/17 10:41 12/09/17 10:54 Normal Saline IV 12/09/17 11:41 999 mls/hr .BOLUS ONE Administration Ketorolac Tromethamine 30 mg 12/09/17 11:28 12/09/17 11:35 Toradol IVPUSH 12/09/17 11:29 30 mg ONETIME ONE Administration Ondansetron HCl 4 mg 12/09/17 10:41 12/09/17 10:55 Zofran IV 12/09/17 10:42 4 mg ONETIME ONE Administration Promethazine HCl 50 mg 12/09/17 11:25 12/09/17 11:38 Phenergan IM 12/09/17 11:26 50 mg ONETIME ONE Administration - Re-Assessments/Exams Free Text/Narrative Re-Assessment/Exam: 12/09/17 12:05 The patient reports that her headache is still an 01/01. An order was placed for Dilaudid. Departure - Departure Time of Disposition: 12:33 Disposition: Home, Self-Care 01 Condition: Fair Clinical Impression: Migraine headache Qualifiers: Migraine type: without aura Status migrainosus presence: without status migrainosus Intractability: not intractable Qualified Code(s): G43.009 - Migraine without aura, not intractable, without status migrainosus - Discharge Information *PRESCRIPTION DRUG MONITORING PROGRAM REVIEWED*: Not Applicable *COPY OF PRESCRIPTION DRUG MONITORING REPORT IN PATIENT JAMES: Not Applicable Instructions: Migraine Headache, [id number] Forms: ED Department Discharge Care Plan Goals: The patient was advised of the examination and lab results during the visit. The patient was encouraged to follow-up with her primary care facility for continued evaluation and further management. If the patient has any additional symptoms or concerns, the patient should visit her primary care facility or return to the emergency department. - My Orders Last 24 Hours: My Active Orders 12/09/17 10:40 DRUG SCREEN URINE BIORAD [URCHEM] Stat HCG QUALITATIVE,URINE [URCHEM] Stat UA W/MICROSCOPIC [URIN] Stat - Assessment/Plan Last 24 Hours: My Active Orders 12/09/17 10:40 DRUG SCREEN URINE BIORAD [URCHEM] Stat HCG QUALITATIVE,URINE [URCHEM] Stat UA W/MICROSCOPIC [URIN] Stat
[2017-12-09] MEDS ORDERED: HYDROmorphone 0.5 MG/0.5 ML Syringe IVPUSH ONE (12:04)
== END 2017-12-09 12:44 | disposition home or self-care (01) ==
LOC: DL.ED 10:11
DX: G43.009 Migraine without aura, not intractable, without status migrainosus (principal); I11.0 Hypertensive heart disease with heart failure; I50.9 Heart failure, unspecified; J44.9 Chronic obstructive pulmonary disease, unspecified; F17.210 Nicotine dependence, cigarettes, uncomplicated; Z88.2 Allergy status to sulfonamides; Z88.8 Allergy status to other drugs, medicaments and biological substances; Z79.899 Other long term (current) drug therapy
CPT/HCPCS: 36415; 80053; 80305; 81001; 81025; 85025; 96361; 96374; 96375; 99283; J1170; J1885; J2405; J2550; J7030

== ENCOUNTER 2017-12-10 15:23 | Emergency (ER) | payer MEDICARE, MEDICAID ==
[2017-12-10] MEDS ORDERED: Promethazine 25 MG/ML SDV IM ONE (16:14)
[2017-12-10] MEDS ORDERED: Butorphanol 2 MG/ML SDV IM ONE (16:14)
--- NOTE | 2017-12-10 16:23 | EDM.PDOC ---
ED HPI GENERAL MEDICAL PROBLEM - General Chief Complaint: Headache Stated Complaint: [id number] MIGRAINE 4 DAYS Time Seen by Provider: 12/10/17 15:45 Source of Information: Reports: Patient History Limitations: Reports: No Limitations - History of Present Illness INITIAL COMMENTS - FREE TEXT/NARRATIVE: This 47 yo patient returns to the ED due to a migraine headache. The patient was seen in the ED yesterday given IV fluids, IV Toradol, IV Zofran, IM Phenergan and IV Dilaudid while in the ED which resolved her headache. The patient reports that she got up this morning and had another headache, but the patient states, "is not my normal headache." The patient reports her current headache is in the right side of her head, but also in the left side of her head , left eye. The patient also reports she is hearing "clicks" in her ears and has stabbing shocks to her brain. The patient reports that she has increased anxiety over things she has been covering in therapy due to PTSD. The patient also report she has been attempting to get off her anxiety medications (last change was 2 months ago). The patient report that she called her neurologist and was advised to come into the ED and explain all of the above findings. The patient reports she did take her Gabapentin and Promethazine this morning, but has not taken anything else for her headache. The patient reports that she does not want to take narcotics, she refused to get Toradol, but requested anxiety medications. When the patient was advised that the anxiety medications given in the ED would help with the anxiety for a few hours the patient refused them, because she wants a permanent fix. The patient did not contact her mental health provider today with her current symptoms. Onset: Today Duration: Constant Location: Reports: Head Quality: Reports: Other Severity: Severe Improves with: Reports: None Worsens with: Reports: None Associated Symptoms: Reports: No Other Symptoms Headache Pain Score (Numeric/FACES): 10 - Related Data Allergies Allergy/AdvReac Type Severity Reaction Status Date / Time Sulfa (Sulfonamide Allergy Intermediate Rash Verified 12/10/17 15:34 Antibiotics) metoclopramide HCl Allergy Swelling Verified 12/10/17 15:34 [From Reglan] quetiapine fumarate Allergy Disorientat Verified 12/10/17 15:34 [From Seroquel] ion Home Meds: Home Meds Budesonide/Formoterol [Symbicort 160-4.5 MCG] 2 puff INH BID 05/24/14 [History] Promethazine [Phenergan] 25 mg PO Q6HR PRN 06/30/14 [History] Carvedilol [Coreg] 6.25 mg PO BID 11/16/14 [History] Lisinopril 20 mg PO DAILY 01/29/15 [History] Potassium Chloride [Klor-Con M20] 40 meq PO BID 03/12/15 [History] Fexofenadine [Yolie] 180 mg PO DAILY PRN 03/13/15 [History] Gabapentin [Neurontin] 600 mg PO Q6H PRN 06/03/15 [History] Bumetanide 2 mg PO DAILY 09/12/15 [History] Calcium Carbonate/Vitamin D3 [Calcium 500-Vit D3 400 Tablet] 1 tab PO BID [History] Dexlansoprazole [Dexilant] 60 mg PO DAILY 09/12/15 [History] Methenamine Mandelate 1 gm PO BIDMEALS 09/12/15 [History] Polyethylene Glycol 3350 17 gm PO ASDIRECTED PRN 09/12/15 [History] Rizatriptan Benzoate [Maxalt] 5 mg PO ASDIRECTED PRN 09/12/15 [History] valACYclovir [Valtrex] 500 mg PO BID PRN 09/12/15 [History] Albuterol/Ipratropium [DuoNeb 3.0-0.5 MG/3 ML] 3 ml NEB Q6HRRT PRN 09/22/15 [ History] ClonazePAM [KlonoPIN] 0.5 mg PO QID 09/22/15 [History] Topiramate [Topamax] 100 mg PO BEDTIME 09/23/15 [History] busPIRone [Buspar] 10 mg PO TID 09/23/15 [History] Ondansetron [Zofran ODT] 4 mg SL Q8H PRN 03/24/16 [History] Escitalopram [Lexapro] 10 mg PO DAILY 06/12/16 [History] Past Medical History HEENT History: Reports: Impaired Vision Other HEENT History: wears glasses Cardiovascular History: Reports: Arrhythmia, Blood Clots/VTE/DVT, Cardiomyopathy , Heart Failure, Hypertension Other Cardiovascular History: AICD Respiratory History: Reports: Asthma, COPD, Pneumonia, Recurrent Gastrointestinal History: Reports: GERD Genitourinary History: Reports: Renal Calculus, UTI, Recurrent 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, 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, Musculoskeletal History: Reports: Back Pain, Chronic, Fracture Other Musculoskeletal History: Neck and back discomfort at present #4 on 0 to 10 scale is going to chiropractor; HX OF R WRIST FRACTURE Neurological History: Reports: Migraines Psychiatric History: Reports: Addiction, Anxiety, PTSD Endocrine/Metabolic History: Reports: None Hematologic History: Reports: B12 Deficiency, Bleeding Disorder Other Hematologic History: vit D deficiency, 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 Immunologic History: Reports: None Oncologic (Cancer) History: Reports: None Dermatologic History: Reports: None - Infectious Disease History Infectious Disease History: Reports: None - Past Surgical History HEENT Surgical History: Reports: Naso-Sinus Surgery, Other (See Below) GI Surgical History: Reports: Appendectomy, Cholecystectomy Female Surgical History: Reports: Section, Endometrial Ablation, Hysterectomy Endocrine Surgical History: Reports: None Neurological Surgical History: Reports: None Musculoskeletal Surgical History: Reports: Carpal Tunnel Oncologic Surgical History: Reports: None Dermatological Surgical History: Reports: None Social & Family History - Family History Family Medical History: Unobtainable Cardiac: Reports: Blood Clots/VTE/DVT, CAD, Other (See Below) Other Cardiac Family History: FACTOR IV Respiratory: Reports: COPD Neurological: Reports: Alzheimers Disease Endocrine/Metabolic: Reports: Diabetes, type II Hematologic: Reports: Anemia, B12 Deficiency - Tobacco Use Smoking Status *Q: Never Smoker - Caffeine Use Caffeine Use: Reports: None - Recreational Drug Use Recreational Drug Use: No - Living Situation & Occupation Living situation: Reports: with Significant Other Occupation: Employed ED ROS GENERAL - Review of Systems Review Of Systems: ROS reveals no pertinent complaints other than HPI. - Physical Exam Exam: See Below Exam Limited By: No Limitations General Appearance: Anxious, Moderate Distress Eye Exam: Bilateral Eye: EOMI, Normal Inspection, PERRL Ears: Normal External Exam, Normal Canal, Hearing Grossly Normal, Normal TMs Nose: Normal Inspection, Normal Mucosa, No Blood Throat/Mouth: Normal Inspection, Normal Lips, Normal Teeth, Normal Gums, Normal Oropharynx, Normal Voice, No Airway Compromise Head Exam: Atraumatic, Normocephalic Neck: Normal Inspection, Supple, Non-Tender, Full Range of Motion Respiratory/Chest: No Respiratory Distress, Lungs Clear, Normal Breath Sounds, No Accessory Muscle Use, Chest Non-Tender Cardiovascular: Normal Peripheral Pulses, Regular Rate, Rhythm, No Edema, No Gallop, No JVD, No Murmur, No Rub GI/Abdominal: Normal Bowel Sounds, Soft, Non-Tender, No Organomegaly, No Distention, No Abnormal Bruit, No Mass (Female) Exam: Deferred Rectal (Female) Exam: Deferred Neuro Exam (Abbreviated): Alert, Oriented, CN II-XII Intact Extremities: Normal Inspection, Normal Range of Motion, Non-Tender, No Pedal Edema, Normal Capillary Refill Psychiatric: Anxious, Depressed Mood, Tearful Skin Exam: Warm, Dry, Intact, Normal Color, No Rash Course - Vital Signs Last Recorded V/S: Last Vital Signs Temp 37.6 C 12/10/17 15:37 Pulse 95 12/10/17 15:37 Resp 16 12/10/17 15:37 BP 118/90 12/10/17 15:37 Pulse Ox 95 12/10/17 15:37 - Orders/Labs/Meds Meds: Medications Discontinued Medications Generic Name Dose Route Start Last Admin Trade Name Freq PRN Reason Stop Dose Admin Butorphanol Tartrate 2 mg 12/10/17 16:14 12/10/17 16:26 Stadol IM 12/10/17 16:15 2 mg ONETIME ONE Administration Promethazine HCl 50 mg 12/10/17 16:14 12/10/17 16:24 Phenergan IM 12/10/17 16:15 50 mg ONETIME ONE Administration Departure - Departure Time of Disposition: 17:03 Disposition: Home, Self-Care 01 Condition: Fair Clinical Impression: Migraine Qualifiers: Migraine type: unspecified Status migrainosus presence: without status migrainosus Intractability: not intractable Qualified Code(s): G43.909 - Migraine, unspecified, not intractable, without status migrainosus - Discharge Information *PRESCRIPTION DRUG MONITORING PROGRAM REVIEWED*: Not Applicable *COPY OF PRESCRIPTION DRUG MONITORING REPORT IN PATIENT JAMES: Not Applicable Instructions: Migraine Headache, [id number] Referrals: Sue Redmond MD [Primary Care Provider] - Forms: ED Department Discharge Care Plan Goals: The patient was advised of the examination results during the visit. The patient was given a dose of Phenergan and Stadol while in the ED for symptom relief. The patient was encouraged to follow-up with her primary care provider for continued evaluation and management. If the patient has any additional symptoms or concerns, the patient should follow-up with her primary care provider or return to the emergency department.
[2017-12-10 17:09] VITALS: BP 98/55
== END 2017-12-10 17:10 | disposition home or self-care (01) ==
LOC: DL.ED 15:23
DX: G43.909 Migraine, unspecified, not intractable, without status migrainosus (principal); J44.9 Chronic obstructive pulmonary disease, unspecified; Z88.2 Allergy status to sulfonamides; Z88.8 Allergy status to other drugs, medicaments and biological substances; Z79.899 Other long term (current) drug therapy; Z87.01 Personal history of pneumonia (recurrent)
CPT/HCPCS: 96372; 99283; J0595; J2550